=== PATIENT | female | born 1995 | race Caucasian/White ===

== ENCOUNTER 2016-05-04 | Outpatient (CLI) | payer MEDICAID | END 2016-05-04 12:35 | disposition home or self-care (01) ==

== ENCOUNTER 2016-05-14 11:19 | Outpatient (CLI) | payer MEDICAID | END 2016-05-15 11:20 | disposition home or self-care (01) | DX: Z36 Encounter for antenatal screening of mother (principal) ==

== ENCOUNTER 2016-05-28 11:48 | Outpatient (CLI) | payer MEDICAID | END 2016-05-28 11:49 | disposition home or self-care (01) | DX: L29.9 Pruritus, unspecified (principal) ==

== ENCOUNTER 2016-05-29 11:22 | Emergency (ER) | payer MEDICAID ==
[2016-05-29] MEDS ORDERED: SODIUM CHLORIDE 0.9% 1,000 ML IV ONE (12:59)
[2016-05-29] MEDS ORDERED: ONDANSETRON 4 MG/2 ML VIAL ONE (13:04)
[2016-05-29] MEDS ORDERED: ONDANSETRON 4 MG/2 ML VIAL IVP STA (13:04)
[2016-05-29] MEDS ORDERED: MAG HYDROX/AL HYDROX/SIMETH 30 ML UDC PO STA (13:28)
[2016-05-29] MEDS ORDERED: MAG HYDROX/AL HYDROX/SIMETH 30 ML UDC ONE (13:32)
== END 2016-05-29 14:38 | disposition home or self-care (01) ==
DX: O99.613 Diseases of the digestive system complicating pregnancy, third trimester (principal); K52.9 Noninfective gastroenteritis and colitis, unspecified; O99.283 Endocrine, nutritional and metabolic diseases complicating pregnancy, third trimester; E86.0 Dehydration; Z3A.37 37 weeks gestation of pregnancy
CPT/HCPCS: 36415; 80053; 81001; 83690; 84484; 85025; 96374; 99281; 99283; A9270

== ENCOUNTER 2016-05-29 14:42 | Inpatient (IN) | payer MEDICAID ==
[2016-05-29] MEDS ORDERED: DEXTROSE 5%-LACTATED RINGERS 1,000 ML IV SCH (17:00)
[2016-05-29] MEDS ORDERED: SODIUM CHLORIDE FLUSH 0.9% 10 ML SYRINGE IVP ONE (17:53)
[2016-05-29] MEDS: ONDANSETRON 4 MG/2 ML VIAL IVP PRN ×2 (18:03→22:51)
[2016-05-29] MEDS ORDERED: MAGNESIUM CITRATE 296 ML BOTTLE PO PRN (18:51)
[2016-05-29] MEDS ORDERED: ZOLPIDEM 5 MG TABLET PO PRN (20:15)
[2016-05-29] MEDS: DEXTROSE 5%-LACTATED RINGERS 1,000 ML IV SCH ×2 (22:07→22:08)
[2016-05-29] MEDS: ACETAMINOPHEN 325 MG TABLET PO PRN (22:52)
[2016-05-30] MEDS ORDERED: HYDROcod/ACETAM 10 MG/325 MG TABLET ONE (02:00)
[2016-05-30] MEDS: DEXTROSE 5%-LACTATED RINGERS 1,000 ML IV SCH ×2 (04:24→11:01)
[2016-05-30] MEDS: HYDROcod/ACETAM 10 MG/325 MG TABLET PO PRN ×2 (08:44→18:43)
[2016-05-30] MEDS: CALCIUM CARBONATE CHEW 500 MG TABLET PO SCH (09:54)
[2016-05-30] MEDS ORDERED: SODIUM CHLORIDE FLUSH 0.9% 10 ML SYRINGE IVP PRN (13:04)
[2016-05-30] MEDS: LACTATED RINGERS 1,000 ML IV SCH ×2 (13:18→19:47)
[2016-05-30] MEDS: CALCIUM CARBONATE CHEW 500 MG TABLET PO PRN ×2 (13:19→18:43)
[2016-05-30] MEDS ORDERED: DINOPROSTONE 10 MG SUPP VG ONE (13:30)
[2016-05-31] MEDS: LACTATED RINGERS 1,000 ML IV SCH ×3 (01:53→11:09)
[2016-05-31] MEDS ORDERED: SUFENTA/BUPIV 0.4 MCG/0.0625% 150 ML EP ONE (02:43)
[2016-05-31] MEDS ORDERED: LACTATED RINGERS 1,000 ML IV SCH (03:00)
[2016-05-31] MEDS ORDERED: LIDOCAINE-PF 2% 10 ML AMP SUBQ ONE (03:00)
[2016-05-31] MEDS ORDERED: ROPIVACAINE 0.2% PF 10 ML VIAL EPI ONE (03:00)
[2016-05-31] MEDS ORDERED: SUFENTA/BUPIV 0.4 MCG/0.0625% EPIDURAL 150 ML EP PRN (03:20)
[2016-05-31] MEDS ORDERED: OXYTOCIN/LACTATED RINGERS 250 ML IV SCH (04:30)
[2016-05-31] MEDS ORDERED: METOCLOPRAMIDE 10 MG/2 ML VIAL IVP PRN (05:31)
[2016-05-31] MEDS ORDERED: ONDANSETRON 4 MG/2 ML VIAL IVP PRN (05:31)
[2016-05-31] MEDS ORDERED: ePHEDrine 50 MG/ML AMP IVP PRN (05:31)
[2016-05-31] MEDS ORDERED: NALOXONE 0.4 MG/ML VIAL IVP PRN (05:31)
[2016-05-31] MEDS ORDERED: diphenhydrAMINE INJ 50 MG/ML VIAL IVP PRN (05:31)
[2016-05-31] MEDS ORDERED: NALBUPHINE 20 MG/ML AMP IVP PRN (05:31)
[2016-05-31] MEDS ORDERED: LACTATED RINGERS 500 ML IV ONE (05:31)
[2016-05-31] MEDS: ACETAMINOPHEN 325 MG TABLET PO PRN (07:47)
[2016-05-31] MEDS ORDERED: ACETAMINOPHEN 325 MG TABLET PO PRN (12:08)
[2016-05-31] MEDS: OXYTOCIN/LACTATED RINGERS 250 ML IV SCH ×2 (12:10→14:55)
[2016-05-31] MEDS ORDERED: WITCH HAZEL/GLYCERIN 1 EACH MED..PAD TOP PRN (12:12)
[2016-05-31] MEDS: IBUPROFEN 600 MG TABLET PO SCH ×2 (14:53→20:54)
[2016-05-31] MEDS: HYDROcod/ACETAM 10 MG/325 MG TABLET PO PRN ×2 (16:56→20:53)
[2016-05-31] MEDS: SODIUM CHLORIDE FLUSH 0.9% 10 ML SYRINGE IVP SCH (20:09)
[2016-05-31] MEDS: DOCUSATE SODIUM 100 MG CAPSULE PO SCH (20:53)
[2016-06-01] MEDS: HYDROcod/ACETAM 10 MG/325 MG TABLET PO PRN (02:10)
[2016-06-01] MEDS: IBUPROFEN 600 MG TABLET PO SCH ×4 (08:35→19:35)
[2016-06-01] MEDS: DOCUSATE SODIUM 100 MG CAPSULE PO SCH ×2 (08:49→21:15)
[2016-06-01] MEDS: CALCIUM CARBONATE CHEW 500 MG TABLET PO SCH ×3 (10:35→23:29)
[2016-06-01] MEDS: SODIUM CHLORIDE FLUSH 0.9% 10 ML SYRINGE IVP SCH ×3 (10:38→10:42)
[2016-06-02] MEDS: IBUPROFEN 600 MG TABLET PO SCH ×2 (01:54→07:39)
[2016-06-02] MEDS: DOCUSATE SODIUM 100 MG CAPSULE PO SCH (07:39)
== END 2016-06-02 10:30 | disposition home or self-care (01) | DRG 775 ==
PROC: 3E0P7GC Introduction of Other Therapeutic Substance into Female Reproductive, Via Natural or Artificial Opening (ICD-10-PCS; principal; 2016-05-31)
PROC: 10E0XZZ Delivery of Products of Conception, External Approach (ICD-10-PCS; principal; 2016-05-31)
DX: O26.62 Liver and biliary tract disorders in childbirth (principal); K83.1 Obstruction of bile duct; O66.0 Obstructed labor due to shoulder dystocia; O69.81X0 Labor and delivery complicated by cord around neck, without compression, not applicable or unspecified; O75.89 Other specified complications of labor and delivery; O99.283 Endocrine, nutritional and metabolic diseases complicating pregnancy, third trimester; E86.0 Dehydration; Z87.891 Personal history of nicotine dependence; Z3A.37 37 weeks gestation of pregnancy; Z37.0 Single live birth

== ENCOUNTER 2016-06-04 13:50 | Outpatient (CLI) | payer MEDICAID ==
[2016-06-04 14:33] LABS: ALBUMIN/GLOBULIN RATIO 0.8 (1.0-2.2); BILIRUBIN,TOTAL 0.3 mg/dL (0.2-1.0); CALCIUM 8.3 mg/dL (8.5-10.3); CREATININE 0.6 mg/dL (0.4-1.0); POTASSIUM 3.6 mmol/L (3.5-5.0); TOTAL PROTEIN 6.8 g/dL (6.7-8.2)
== END 2016-06-04 13:51 | disposition home or self-care (01) ==
LOC: LAB 13:50
PROVIDERS: ATTEND Nurse Practitioner Obstetrics & Gynecology
DX: O26.619 Liver and biliary tract disorders in pregnancy, unspecified trimester (principal)
CPT/HCPCS: 36415; 80053

== ENCOUNTER 2016-10-19 10:36 | Outpatient (CLI) | payer MEDICAID ==
[2016-10-19 18:15] LABS: WBC,URINE >25 /HPF (0-5)
== END 2016-10-19 10:37 | disposition home or self-care (01) ==
LOC: LAB.R 10:36
PROVIDERS: ATTEND Nurse Practitioner Obstetrics & Gynecology
DX: R30.0 Dysuria (principal)
CPT/HCPCS: 81001

== ENCOUNTER 2016-11-05 09:25 | Emergency (ER) | payer MEDICAID ==
[2016-11-05] MEDS ORDERED: TETANUS/DIPHTHERIA/PERTUSSIS 0.5 ML SYRINGE IM ONE ×2 (10:09→10:22)
--- NOTE | 2016-11-05 11:54 | ED Physician Documentation ---
History of Present Illness - Stated complaint Stated Complaint: L FOOT LAC - Chief complaint Chief Complaint: Laceration - Additonal information Additional information: avulsion lac bottom of foot tdap > 10 yr Review of Systems Skin: reports: Laceration (s) PD PAST MEDICAL HISTORY - Past Medical History Cardiovascular: None Respiratory: None Endocrine/Autoimmune: None GI: Other : None HEENT: None Psych: ADD/ADHD Musculoskeletal: None Derm: None - Past Surgical History Past Surgical History: No - Present Medications Home Medications: Ambulatory Orders Medication Instructions Recorded Confirmed No Known Home Medications [No 11/05/16 11/05/16 Known Home Medications] - Allergies Allergies/Adverse Reactions: Allergies Allergy/AdvReac Type Severity Reaction Status Date / Time amoxicillin Allergy Rash Verified 11/05/16 09:39 minocycline [Minocycline] Allergy Rash Verified 11/05/16 09:39 acetaminophen AdvReac Unknown Verified 11/05/16 09:39 - Social History Does the pt smoke?: No Smoking Status: Former smoker Does the pt drink ETOH?: Yes Does the pt have substance abuse?: No - Immunizations Immunizations are current?: No Immunizations: TDAP >10years/unknown - POLST Patient has POLST: No PD ED PE NORMAL - Extremities Extremities: Other (R foot approx 2 cm V shaped avulsion of thicjenoed plantar skin, raw tusse under but no active bleding, MSV intact) Results - Vitals Vitals: Vital Signs - 24 hr 11/05/16 09:34 Temperature 36.2 C L Heart Rate 124 H Respiratory 20 Rate Blood Pressure 150/94 H O2 Saturation 100 Oxygen O2 Source Room air PD MEDICAL DECISION MAKING - ED course ED course: tdap irrigated dermabonf pt advised flap with dry and fall or need to be trimmed off after tissue under heals HR and BP high - rechecked and HR down to 110 - pt states not ill no fever CP palpitations leg swelling soa etc no caffeine etc - she feels fine - her CC is not an emergent concern - will ask her to fup PMD for a recheck - maybe needs thyroid work up Departure - Departure Disposition: 01 Home, Self Care Clinical Impression: Laceration Condition: Good Instructions: ED Laceration Foot Comments: Keep the foot clean and dry May bather but do not apply ointment because that will dissolve the glue The flap will dry up and eventually fall off or need to be trimmed off after the tissue underneath has healed Ass we discussed, wound on the feet are prone to infection - if you notice redness or swelling or discharge please come back Please follow up with your PMD within one week to get your heart rate and blood pressure rechecked
[2016-11-05 12:22] VITALS: BP 123/76
== END 2016-11-05 12:35 | disposition home or self-care (01) ==
LOC: ED 09:25
DX: S91.312A Laceration without foreign body, left foot, initial encounter (principal); W45.8XXA Other foreign body or object entering through skin, initial encounter; Y93.01 Activity, walking, marching and hiking; Y92.009 Unspecified place in unspecified non-institutional (private) residence as the place of occurrence of the external cause; R03.0 Elevated blood-pressure reading, without diagnosis of hypertension; R00.0 Tachycardia, unspecified; Z23 Encounter for immunization; Z87.891 Personal history of nicotine dependence
CPT/HCPCS: 12001; 90471; 99282

== ENCOUNTER 2016-12-11 22:54 | Emergency (ER) | payer MEDICAID ==
[2016-12-11 23:13] VITALS: BP 138/92
--- NOTE | 2016-12-11 23:41 | ED Physician Documentation ---
History of Present Illness - Stated complaint Stated Complaint: LT RING FINGER REDNESS - Chief complaint Chief Complaint: Wound - History obtained from History obtained from: Patient - History of Present Illness Timing: Today Pain level now: 7 Worsened by: palpation - Additonal information Additional information: c/o left fourth finger redness, swelling since this morning. patient "bit off a hangnail" (per patient) 2-3 days ago. She is right-hand dominant Review of Systems Constitutional: denies: Fever Skin: reports: Rash Musculoskeletal: reports: Extremity pain PD PAST MEDICAL HISTORY - Past Medical History Past Medical History: Yes Cardiovascular: None Respiratory: None Endocrine/Autoimmune: None GI: Other : None HEENT: None Psych: ADD/ADHD Musculoskeletal: None Derm: None - Past Surgical History Past Surgical History: No - Present Medications Home Medications: Ambulatory Orders Medication Instructions Recorded Confirmed Clindamycin [Cleocin] 300 mg PO Q6H 7 Days 12/12/16 oxyCODONE [Roxicodone] 5 - 10 mg PO Q6H PRN #14 tablet 12/12/16 - Allergies Allergies/Adverse Reactions: Allergies Allergy/AdvReac Type Severity Reaction Status Date / Time amoxicillin Allergy Rash Verified 12/11/16 23:34 minocycline [Minocycline] Allergy Rash Verified 12/11/16 23:34 acetaminophen AdvReac Unknown Verified 12/11/16 23:34 - Social History Does the pt smoke?: No Smoking Status: Former smoker Does the pt drink ETOH?: Yes Does the pt have substance abuse?: No - Immunizations Immunizations are current?: No Immunizations: TDAP >10years/unknown - POLST Patient has POLST: No PD ED PE NORMAL - Vitals Vital signs reviewed: Yes - General General: Alert and oriented X 3, No acute distress - Neuro Neuro: No motor deficit, No sensory deficit PD ED PE EXPANDED - Extremities JOSUE UE/Hands Visual: 1 - swelling, tenderness 2 - rash (erythematous streak from redness, swelling in area marked under (1)) Results - Vitals Vitals: Vital Signs - 24 hr 12/11/16 23:10 Temperature 36.6 C Heart Rate 88 Respiratory 17 Rate Blood Pressure 138/92 H O2 Saturation 100 Oxygen O2 Source Room air PD MEDICAL DECISION MAKING - ED course Complexity details: considered differential, d/w patient ED course: No fluctuance or discharge associated with the paronychia Departure - Departure Disposition: 01 Home, Self Care Clinical Impression: Paronychia Condition: Good Instructions: ED Fingernail Infec Prescriptions: Clindamycin [Cleocin] 300 mg PO Q6H 7 Days oxyCODONE [Roxicodone] 5 - 10 mg PO Q6H PRN #14 tablet PRN Reason: Pain Comments: Follow up with your primary care physician in 2-3 days for wound check Discharge Date/Time: 12/12/16 00:15
[2016-12-12] MEDS ORDERED: oxyCODONE 5 MG TABLET PO STA (00:03)
[2016-12-12] MEDS ORDERED: CLINDAMYCIN 150 MG CAPSULE PO STA (00:03)
[2016-12-12] MEDS ORDERED: CLINDAMYCIN 150 MG CAPSULE PO ONE (00:11)
[2016-12-12] MEDS ORDERED: oxyCODONE 5 MG TABLET ONE (00:12)
== END 2016-12-12 00:15 | disposition home or self-care (01) ==
LOC: ED 22:54
DX: L03.012 Cellulitis of left finger (principal); Z87.891 Personal history of nicotine dependence
CPT/HCPCS: 99283; A9270

== ENCOUNTER 2016-12-13 16:26 | Emergency (ER) | payer MEDICAID ==
[2016-12-13 16:37] VITALS: BP 118/72
[2016-12-13] MEDS ORDERED: BUFFERED LIDOCAINE 10 ML SYRINGE ONE (16:51)
--- NOTE | 2016-12-13 16:52 | ED Physician Documentation ---
PD HPI UPPER EXT INJURY - Stated complaint Stated Complaint: L RING FINGER INFECTIONS - Chief complaint Chief Complaint: Ext Problem - History obtained from History obtained from: Patient - History of Present Illness Location: Other (She was seen here a few days ago for a paronychia of the Left fourth finger, she is on antibiotics. It sounds like it was not really ripe for drainage at that juncture, but now it is.) Review of Systems Constitutional: denies: Fever, Chills : denies: Dysuria, Frequency Musculoskeletal: denies: Neck pain, Back pain PD PAST MEDICAL HISTORY - Past Medical History Cardiovascular: None Respiratory: None Endocrine/Autoimmune: None GI: Other : None HEENT: None Psych: ADD/ADHD Musculoskeletal: None Derm: None - Past Surgical History Past Surgical History: No - Present Medications Home Medications: Ambulatory Orders Medication Instructions Recorded Confirmed Clindamycin [Cleocin] 300 mg PO Q6H 7 Days 12/12/16 12/13/16 oxyCODONE [Roxicodone] 5 - 10 mg PO Q6H PRN #14 tablet 12/12/16 12/13/16 - Allergies Allergies/Adverse Reactions: Allergies Allergy/AdvReac Type Severity Reaction Status Date / Time amoxicillin Allergy Rash Verified 12/13/16 16:37 minocycline [Minocycline] Allergy Rash Verified 12/13/16 16:37 acetaminophen AdvReac Unknown Verified 12/13/16 16:37 - Social History Does the pt smoke?: No Smoking Status: Former smoker Does the pt drink ETOH?: Yes Does the pt have substance abuse?: No - Immunizations Immunizations are current?: No Immunizations: TDAP >10years/unknown - POLST Patient has POLST: No PD ED PE NORMAL - Vitals Vital signs reviewed: Yes - General General: Alert and oriented X 3, No acute distress - Extremities Extremities: Other (There is an almost circumferential paronychia of the base of the nailbed of the left fourth finger. No limited range of motion.) - Neuro Neuro: Alert and oriented X 3, Normal speech - Psych Psych: Normal mood, Normal affect Results - Vitals Vitals: Vital Signs - 24 hr 12/13/16 16:33 Temperature 36.8 C Heart Rate 75 Respiratory 16 Rate Blood Pressure 118/72 O2 Saturation 95 Oxygen O2 Source Room air Procedures - Abscess I&D (location) Left fourth paronychia Preparation: Lidocaine 1% (Buffered, digital block) Incision: Incised with scalpel, Purulent drainage Other: Pt tolerated well, Dressing applied. No: Antibiotic prescribed (Already on clindamycin) Departure - Departure Disposition: Home, Self Care Clinical Impression: Paronychia Qualifiers: Laterality: left Qualified Code(s): L03.012 - Cellulitis of left finger Condition: Good Record reviewed to determine appropriate education?: Yes Instructions: ED Fingernail Infec Comments: Continue the antibiotic, follow-up with your doctor Saturday or Saturday for wound check. Return if worse.
== END 2016-12-13 17:24 | disposition home or self-care (01) ==
LOC: ED 16:26
DX: L03.012 Cellulitis of left finger (principal); Z87.891 Personal history of nicotine dependence
CPT/HCPCS: 10060; 99283

== ENCOUNTER 2017-03-17 07:53 | Emergency (ER) | payer MEDICAID ==
[2017-03-17 08:01] VITALS: BP 119/75
[2017-03-17 08:17] LABS: BILIRUBIN,URINE NEGATIVE (NEGATIVE)
[2017-03-17 08:20] LABS: HCG UR QUAL NEGATIVE; UA w/ MICROSCOPIC CHARGE YES
--- NOTE | 2017-03-17 08:20 | ED Physician Documentation ---
PD HPI FEMALE - Stated complaint Stated Complaint: FEMALE - Chief complaint Chief Complaint: UTI - History obtained from History obtained from: Patient - History of Present Illness Timing - onset: How many days ago (2) Timing - duration: Days (2) Timing - details: Gradual onset, Still present Associated symptoms: Dysuria, Urinary frequency Similar symptoms before: Diagnosis (UTI) Recently seen: Not recently seen - Additional information Additional information: 21 y/o female with typical symptoms of UTI over the weekend has begun to develop some low back pain and decided not to wait until saturday to start treatment and has come to the ED. She has not had vomiting or fever. She feels well otherwise. Review of Systems Constitutional: denies: Fever, Chills Eyes: denies: Decreased vision Ears: denies: Ear pain Nose: denies: Congestion Throat: denies: Sore throat Cardiac: denies: Chest pain / pressure Respiratory: denies: Dyspnea, Cough GI: denies: Abdominal Pain, Nausea, Vomiting, Constipation, Diarrhea : reports: Dysuria, Frequency Skin: denies: Rash Musculoskeletal: reports: Back pain. denies: Neck pain, Extremity pain Neurologic: denies: Generalized weakness, Focal weakness, Numbness PD PAST MEDICAL HISTORY - Past Medical History Past Medical History: Yes Cardiovascular: None Respiratory: None Endocrine/Autoimmune: None GI: Other : None HEENT: None Psych: ADD/ADHD Musculoskeletal: None Derm: None - Past Surgical History Past Surgical History: No - Present Medications Home Medications: Ambulatory Orders Medication Instructions Recorded Confirmed Levonorgestrel [Mirena] 1 each IY DAILY 03/17/17 03/17/17 Sulfamethoxazole/Trimethoprim 1 each PO BID #6 tablet 03/17/17 [Sulfamethoxazole-Tmp Ds Tablet] - Allergies Allergies/Adverse Reactions: Allergies Allergy/AdvReac Type Severity Reaction Status Date / Time amoxicillin Allergy Rash Verified 03/17/17 08:01 minocycline [Minocycline] Allergy Rash Verified 03/17/17 08:01 acetaminophen AdvReac Unknown Verified 03/17/17 08:01 - Social History Does the pt smoke?: No Smoking Status: Never smoker Does the pt drink ETOH?: Yes Does the pt have substance abuse?: No - Immunizations Immunizations are current?: No Immunizations: TDAP >10years/unknown - POLST Patient has POLST: No PD ED PE NORMAL - Vitals Vital signs reviewed: Yes (normal ) - General General: No acute distress, Well developed/nourished - HEENT HEENT: Atraumatic, PERRL - Neck Neck: Supple, no meningeal sign - Cardiac Cardiac: RRR, No murmur - Respiratory Respiratory: No respiratory distress, Clear bilaterally - Abdomen Abdomen: Soft, Non tender - Back Back: No CVA TTP, No spinal TTP - Derm Derm: Normal color, Warm and dry, No rash - Extremities Extremities: No deformity, No edema - Neuro Neuro: Alert and oriented X 3, powered bridge specialist 2-12 intact, No motor deficit, No sensory deficit, Normal speech Eye Opening: Spontaneous Motor: Obeys Commands Verbal: Oriented GCS Score: 15 - Psych Psych: Normal mood, Normal affect Results - Vitals Vitals: Vital Signs - 24 hr 03/17/17 07:59 Temperature 36.7 C Heart Rate 96 Respiratory 16 Rate Blood Pressure 119/75 O2 Saturation 100 Oxygen O2 Source Room air - Labs Labs: Laboratory Tests 03/17/17 08:03 Urine Color YELLOW Urine Clarity CLOUDY Urine pH 6.0 Ur Specific [place] >=1.030 H Urine Protein NEGATIVE Urine Glucose (UA) NEGATIVE Urine Ketones NEGATIVE Urine Occult Blood MODERATE H Urine Nitrite NEGATIVE Urine Bilirubin NEGATIVE Urine Urobilinogen 0.2 (NORMAL) Ur Leukocyte Esterase MODERATE H Urine RBC 6-10 H Urine WBC >25 H Ur Squamous Epith Cells MANY Squamous H Urine Bacteria Rare Urine Mucus Moderate Strands Ur Microscopic Review INDICATED Urine Culture Comments NOT INDICATED Urine HCG, Qual NEGATIVE Departure - Departure Disposition: 01 Home, Self Care Clinical Impression: Urinary tract infection Qualifiers: Urinary tract infection type: acute cystitis Hematuria presence: without hematuria Qualified Code(s): N30.00 - Acute cystitis without hematuria Condition: Stable Instructions: ED UTI Cystitis Female Follow-Up: Khushbu Soto ARNP [Primary Care Provider] - Prescriptions: Sulfamethoxazole/Trimethoprim [Sulfamethoxazole-Tmp Ds Tablet] 1 each PO BID #6 tablet
[2017-03-17 08:31] LABS: UR CULTURE IF IND NOT INDICATED; WBC,URINE >25 /HPF (0-5)
== END 2017-03-17 08:44 | disposition home or self-care (01) ==
LOC: ED 07:53
DX: N30.00 Acute cystitis without hematuria (principal)
CPT/HCPCS: 81001; 81003; 81025; 87086; 99283

== ENCOUNTER 2017-04-25 15:57 | Emergency (ER) | payer MEDICAID ==
--- NOTE | 2017-04-25 17:34 | ED Physician Documentation ---
History of Present Illness - Stated complaint Stated Complaint: SORE THROAT - Chief complaint Chief Complaint: Heent - Additonal information Additional information: hx from pt 21 female to ER for sore throat R ear pain, R sided DARDEN, no sig couhg denies preg was just here with her son yesterday Review of Systems Ears: reports: Ear pain Throat: reports: Sore throat Respiratory: denies: Cough GI: denies: Vomiting, Diarrhea Skin: denies: Rash Neurologic: reports: Headache PD PAST MEDICAL HISTORY - Past Medical History Cardiovascular: None Respiratory: None Endocrine/Autoimmune: None GI: Other : None HEENT: None Psych: ADD/ADHD Musculoskeletal: None Derm: None - Past Surgical History Past Surgical History: No - Present Medications Home Medications: Ambulatory Orders Medication Instructions Recorded Confirmed Levonorgestrel [Mirena] 1 each IY DAILY 03/17/17 03/17/17 Dextromethorphan/Benzocaine 1 each PO Q4H PRN #20 lozenge 04/25/17 [Cepacol Sorethroat-Cough Ajrek] Ibuprofen [Motrin] 400 mg PO Q6H PRN #30 tablet 04/25/17 - Allergies Allergies/Adverse Reactions: Allergies Allergy/AdvReac Type Severity Reaction Status Date / Time amoxicillin Allergy Rash Verified 04/25/17 16:15 minocycline [Minocycline] Allergy Rash Verified 04/25/17 16:15 acetaminophen AdvReac Unknown Verified 04/25/17 16:15 - Social History Does the pt smoke?: No Smoking Status: Never smoker Does the pt drink ETOH?: Yes Does the pt have substance abuse?: No - Immunizations Immunizations are current?: No Immunizations: TDAP >10years/unknown - POLST Patient has POLST: No PD ED PE NORMAL - Vitals Vital signs reviewed: Yes - General General: Alert and oriented X 3 - HEENT HEENT: PERRL. No: Ears normal (R dull and retracted), Pharynx benign (karley enlarged tonsils with exudate and PND) - Neck Neck: Supple, no meningeal sign. No: No adenopathy (anterior no posterior) - Cardiac Cardiac: RRR - Respiratory Respiratory: No respiratory distress, Clear bilaterally - Abdomen Abdomen: Soft, Non tender, No organomegaly Results - Vitals Vitals: Vital Signs - 24 hr 04/25/17 16:13 Temperature 37.1 C Heart Rate 83 Respiratory 18 Rate Blood Pressure 119/89 H O2 Saturation 98 Oxygen O2 Source Room air - Labs Labs: Laboratory Tests 04/25/17 16:15 Group A Strep Rapid Negative PD MEDICAL DECISION MAKING - ED course ED course: meets centor criteria except fever but neg rapid will wait on cx Departure - Departure Disposition: Home, Self Care Clinical Impression: Pharyngitis Qualifiers: Pharyngitis/tonsillitis etiology: unspecified etiology Qualified Code(s): J02.9 - Acute pharyngitis, unspecified Condition: Good Instructions: ED Pharyngitis Viral Report Pending Follow-Up: Khushbu Soto ARNP [Primary Care Provider] - Prescriptions: Dextromethorphan/Benzocaine [Cepacol Sorethroat-Cough Jarek] 1 each PO Q4H PRN # 20 lozenge PRN Reason: sore throat Ibuprofen [Motrin] 400 mg PO Q6H PRN #30 tablet PRN Reason: Pain Comments: The rapid strep came back negative The ER staff will call you if the culture is positive and you need antibiotics - if you need antibiotics I would recommend zithrmoax Motrin and cepacol lozenges as needed for the pain Rest and drink plenty of fluids
[2017-04-25 18:00] VITALS: BP 109/88
== END 2017-04-25 17:58 | disposition home or self-care (01) ==
LOC: ED 15:57
DX: J02.9 Acute pharyngitis, unspecified (principal)
CPT/HCPCS: 87070; 87430; 99283

== ENCOUNTER 2017-05-22 00:17 | Emergency (ER) | payer MEDICAID ==
[2017-05-22] MEDS ORDERED: SODIUM CHLORIDE 0.9% 1,000 ML IV ONE (00:22)
[2017-05-22] MEDS ORDERED: ONDANSETRON 4 MG/2 ML VIAL IVP STA (00:22)
--- NOTE | 2017-05-22 00:29 | ED Physician Documentation ---
PD HPI NVD - Stated complaint Stated Complaint: VOMITING - History obtained from History obtained from: Patient - History of Present Illness Timing - onset: Yesterday Timing - details: Gradual onset Associated symptoms: Abdominal pain, Near syncope / syncope Contributing factors: Sick contact Similar symptoms before: No diagnosis Recently seen: Not recently seen - Additonal information Additional information: Patient is a 21 year old female who is presenting to the emergency department for nausea, vomiting and diarrhea. patient states that her daughter has been sick with simlar symptoms and over the last few days she has had multiple episodes of vomiting and diarrhea. Review of Systems Constitutional: reports: Chills. denies: Fever Eyes: denies: Discharge, Irritation Ears: denies: Ear pain, Drainage/discharge Nose: denies: Congestion Throat: denies: Dental pain / toothache, Sore throat Cardiac: denies: Chest pain / pressure, Palpitations Respiratory: denies: Cough, Wheezing GI: reports: Abdominal Pain, Nausea, Vomiting, Diarrhea : denies: Dysuria, Frequency Musculoskeletal: reports: Reviewed and negative Neurologic: reports: Generalized weakness. denies: Focal weakness, Numbness, Syncope Psychiatric: denies: Depressed Immunocompromised: denies: Immunocompromised PD PAST MEDICAL HISTORY - Past Medical History Cardiovascular: None Respiratory: None Endocrine/Autoimmune: None GI: Other : None HEENT: None Psych: ADD/ADHD Musculoskeletal: None Derm: None - Past Surgical History Past Surgical History: No - Present Medications Home Medications: Ambulatory Orders Medication Instructions Recorded Confirmed Levonorgestrel [Mirena] 1 each IY DAILY 03/17/17 03/17/17 Dextromethorphan/Benzocaine 1 each PO Q4H PRN #20 lozenge 04/25/17 [Cepacol Sorethroat-Cough Jarek] Ibuprofen [Motrin] 400 mg PO Q6H PRN #30 tablet 04/25/17 Ondansetron Odt [Zofran] 4 mg TL Q6H PRN #14 tablet 05/22/17 - Allergies Allergies/Adverse Reactions: Allergies Allergy/AdvReac Type Severity Reaction Status Date / Time amoxicillin Allergy Rash Verified 05/22/17 00:24 minocycline [Minocycline] Allergy Rash Verified 05/22/17 00:24 acetaminophen AdvReac Unknown Verified 05/22/17 00:24 - Social History Does the pt smoke?: No Smoking Status: Never smoker Does the pt drink ETOH?: Yes Does the pt have substance abuse?: No - Immunizations Immunizations are current?: No Immunizations: TDAP >10years/unknown - POLST Patient has POLST: No PD ED PE NORMAL - Vitals Vital signs reviewed: Yes - General General: Alert and oriented X 3 - HEENT HEENT: Atraumatic, PERRL - Neck Neck: Supple, no meningeal sign - Respiratory Respiratory: No respiratory distress - Abdomen Abdomen: Non distended - Derm Derm: Normal color, No rash - Extremities Extremities: No deformity, No tenderness to palpate - Neuro Neuro: Alert and oriented X 3, No motor deficit, No sensory deficit, Normal speech - Psych Psych: Normal mood PD ED PE EXPANDED - General General: Alert, Disheveled, poorly kept - HEENT HEENT: Dry mucous membranes - Cardiac Cardiac: Tachy - Abdomen Abdomen: No: Tender to palpation Results - Vitals Vitals: Vital Signs - 24 hr 05/22/17 00:22 Temperature 36.5 C Heart Rate 115 H Respiratory 18 Rate Blood Pressure 116/66 O2 Saturation 96 Oxygen O2 Source Room air - Labs Labs: Laboratory Tests 05/22/17 00:30 Influenza A (Rapid) Negative Influenza B (Rapid) Negative Influenza Types A,B Ag - PD MEDICAL DECISION MAKING - ED course Complexity details: reviewed old records, reviewed results, re-evaluated patient , considered differential, d/w patient ED course: Patient was seen and examined at bedside. patient was mildly tachycardic and was treated with IV fluids and zofran. flu swab was performed and was negative. patient's nausea improved and she was able to tolerate PO without difficulty. Patien required no further work up and was stable for discharge with outpatient follow up. Departure - Departure Disposition: 01 Home, Self Care Clinical Impression: Gastroenteritis Condition: Good Instructions: ED Gastroenteritis Viral Follow-Up: Khushbu Soto ARNP [Primary Care Provider] - As Needed Prescriptions: Ondansetron Odt [Zofran] 4 mg TL Q6H PRN #14 tablet PRN Reason: Nausea / Vomiting Comments: Your symptoms are likely viral in nature and should get better over the next few days. it is important ath you stay well hydrated. You can take zofran for nausea and supplement your diet with water and electrolyte solution. (gatorade) . You should follow up with your doctor if your symptoms persist for more than the next 4-5 days. You may return to the emergency department at any time if needed for new, worsening or uncontrollable symptoms. Forms: Activity restrictions
[2017-05-22] MEDS ORDERED: ONDANSETRON ODT 4 MG Prepack 2 TL STA (01:17)
[2017-05-22 01:33] VITALS: BP 118/67
== END 2017-05-22 01:44 | disposition home or self-care (01) ==
LOC: ED 00:17
DX: K52.9 Noninfective gastroenteritis and colitis, unspecified (principal)
CPT/HCPCS: 87275; 87276; 96361; 96374; 99283; 99284

== ENCOUNTER 2017-06-08 09:25 | Emergency (ER) | payer MEDICAID ==
[2017-06-08 09:31] VITALS: BP 118/76
--- NOTE | 2017-06-08 10:14 | ED Physician Documentation ---
PD HPI HEENT - Stated complaint Stated Complaint: THROAT PX - Chief complaint Chief Complaint: Heent - History obtained from History obtained from: Patient - History of Present Illness Timing - onset: How many days ago (4) Timing - duration: Days (4) Timing - details: Gradual onset, Still present Location: Throat Improves: Medication Worsens: Swalllowing Associated symptoms: Fever, Congestion, Rhinorrhea, Swollen nodes, Headache. No : Cough Similar symptoms before: Has not had sx before Recently seen: Not recently seen - Additional information Additional information: 21-year-old female is been ill with a sore throat and fever for the past 4 days. She is having some difficulty swallowing and she is not having a cough. Review of Systems Constitutional: reports: Fever, Chills Eyes: denies: Decreased vision Ears: denies: Ear pain Nose: reports: Rhinorrhea / runny nose, Congestion Throat: reports: Sore throat Cardiac: denies: Chest pain / pressure, Palpitations Respiratory: denies: Dyspnea, Cough GI: denies: Abdominal Pain, Nausea, Vomiting : denies: Dysuria PD PAST MEDICAL HISTORY - Past Medical History Cardiovascular: None Respiratory: None Endocrine/Autoimmune: None GI: Other : None HEENT: None Psych: ADD/ADHD Musculoskeletal: None Derm: None - Past Surgical History Past Surgical History: No General: Cholecystectomy - Present Medications Home Medications: Ambulatory Orders Medication Instructions Recorded Confirmed Azithromycin [Zithromax] 250 mg PO DAILY #6 tablet 06/08/17 - Allergies Allergies/Adverse Reactions: Allergies Allergy/AdvReac Type Severity Reaction Status Date / Time amoxicillin Allergy Rash Verified 06/08/17 09:31 minocycline [Minocycline] Allergy Rash Verified 06/08/17 09:31 acetaminophen AdvReac Unknown Verified 06/08/17 09:31 - Social History Does the pt smoke?: No Smoking Status: Never smoker Does the pt drink ETOH?: Yes Does the pt have substance abuse?: No - Immunizations Immunizations are current?: No Immunizations: TDAP >10years/unknown - POLST Patient has POLST: No PD ED PE NORMAL - Vitals Vital signs reviewed: Yes (Febrile and tachycardic) - General General: Alert and oriented X 3, No acute distress, Well developed/nourished - HEENT HEENT: Atraumatic, PERRL, EOMI, Other (The TMs are both flush but with retained landmarks the pharynx is with 3+ tonsils with crypts and exudate.) - Neck Neck: Supple, no meningeal sign, No bony TTP, Other - Cardiac Cardiac: No murmur, Other (Tachycardia to 110) - Respiratory Respiratory: No respiratory distress, Clear bilaterally - Abdomen Abdomen: Soft, Non tender - Back Back: No CVA TTP, No spinal TTP - Derm Derm: Normal color, Warm and dry, No rash - Extremities Extremities: No deformity, Normal ROM s pain, No edema - Neuro Neuro: Alert and oriented X 3, No motor deficit, No sensory deficit, Normal speech Eye Opening: Spontaneous Motor: Obeys Commands Verbal: Oriented GCS Score: 15 - Psych Psych: Normal mood, Normal affect Results - Vitals Vitals: Vital Signs - 24 hr 06/08/17 09:28 Temperature 37.8 C H Heart Rate 122 H Respiratory 18 Rate Blood Pressure 118/76 O2 Saturation 97 Oxygen O2 Source Room air - Labs Labs: Laboratory Tests 06/08/17 09:40 Group A Strep Rapid POSITIVE H PD MEDICAL DECISION MAKING - ED course Complexity details: reviewed old records, reviewed results, re-evaluated patient , considered differential, d/w patient ED course: 21-year-old female with a sore throat has a lot of swelling and exudate in her tonsils and a positive rapid strep. She is given 10 mg of dexamethasone she is allergic to amoxicillin we will place her on some azithromycin. Departure - Departure Disposition: 01 Home, Self Care Clinical Impression: Strep pharyngitis Instructions: ED Strep Pharyngitis Conf Follow-Up: Khushbu Soto ARNP [Primary Care Provider] - Prescriptions: Azithromycin [Zithromax] 250 mg PO DAILY #6 tablet
[2017-06-08] MEDS ORDERED: DEXAMETHASONE 10 MG/ML VIAL PO STA (10:24)
== END 2017-06-08 10:31 | disposition home or self-care (01) ==
LOC: ED 09:25
DX: J02.0 Streptococcal pharyngitis (principal)
CPT/HCPCS: 87430; 99283

== ENCOUNTER 2017-09-02 18:36 | Emergency (ER) | payer OTHER, MEDICAID ==
--- NOTE | 2017-09-02 19:38 | ED Physician Documentation ---
PD HPI HEENT - Stated complaint Stated Complaint: EAR LAC - Chief complaint Chief Complaint: Wound - History obtained from History obtained from: Patient - History of Present Illness Timing - onset: Today Timing - details: Abrupt onset, Still present Location: Left ear (she was playing with her dog, who playfully nipped at her and caused lac to outer rim of ear on left. Has a small flap that is bent out of position.) Associated symptoms: No: Fever, Congestion, Headache Similar symptoms before: Has not had sx before Recently seen: Not recently seen Review of Systems Ears: reports: Ear pain. denies: Loss of hearing, Drainage/discharge, Tinnitus/ ringing Neurologic: denies: Focal weakness, Numbness PD PAST MEDICAL HISTORY - Past Medical History Past Medical History: Yes Cardiovascular: None Respiratory: None Endocrine/Autoimmune: None GI: Other : None HEENT: None Psych: ADD/ADHD Musculoskeletal: None Derm: None - Past Surgical History Past Surgical History: No General: Cholecystectomy - Present Medications Home Medications: Ambulatory Orders Medication Instructions Recorded Confirmed Azithromycin [Zithromax] 250 mg PO DAILY #6 tablet 06/08/17 Azithromycin [Zithromax] 250 mg PO DAILY #6 tablet 09/02/17 - Allergies Allergies/Adverse Reactions: Allergies Allergy/AdvReac Type Severity Reaction Status Date / Time amoxicillin Allergy Rash Verified 09/02/17 18:43 minocycline [Minocycline] Allergy Rash Verified 09/02/17 18:43 acetaminophen AdvReac Unknown Verified 09/02/17 18:43 - Social History Does the pt smoke?: No Smoking Status: Never smoker Does the pt drink ETOH?: Yes Does the pt have substance abuse?: No - Immunizations Immunizations are current?: No Immunizations: TDAP >10years/unknown - POLST Patient has POLST: No PD ED PE NORMAL - Vitals Vital signs reviewed: Yes - General General: Alert and oriented X 3, No acute distress, Well developed/nourished - HEENT HEENT: No: Ears normal (ear canal okay. Outer pinna at mid part with flap lac just exposing the cartilage. No cartilage inury and no FB. less than 1 cm lac, but it does bend down so is not smooth contour. ) - Neck Neck: Supple, no meningeal sign, No bony TTP, No adenopathy Results - Vitals Vitals: Oxygen O2 Source Room air Procedures - Laceration (location) left outer pinna Length in cm: 1.5 Wound type: Flap, Into subcut fat, Clean Neurovascular status: Sensory intact, Vascular intact Anesthesia: LET Skin layer closure: Nylon, Interrupted, Size #-0 - enter number (6), Sutures - enter # (6) Other: Patient tolerated well, No complications, Tetanus UTD Complexity: Simple PD MEDICAL DECISION MAKING - ED course Complexity details: considered differential, d/w patient Departure - Departure Disposition: 01 Home, Self Care Clinical Impression: Laceration of left ear Qualifiers: Encounter type: initial encounter Qualified Code(s): S01.312A - Laceration without foreign body of left ear, initial encounter Condition: Stable Record reviewed to determine appropriate education?: Yes Instructions: ED Laceration Facial Sutr Tape Follow-Up: Khushbu Soto ARNP [Primary Care Provider] - Prescriptions: Azithromycin [Zithromax] 250 mg PO DAILY #6 tablet Comments: It is okay to wash and shower. Clean off the wound twice a day with soap and water, or peroxide and water. Apply some antibiotic ointment to it to keep it moist. Also to watch for signs of infection such as purulence, redness or increasing pain. Return to your primary care or the ER at the specified time for suture removal. Suture removal in a week. The ears have such good blood flow that infection is very uncommon even with bite wounds. However at in the early suggestion of infection, start the azithromycin antibiotic. I wouldn't necessarily start it preemptively. Discharge Date/Time: 09/02/17 20:43
[2017-09-02] MEDS ORDERED: LIDOCAINE-EPINEPH-TETRACAINE 3 ML SYRINGE TOP STA (19:56)
[2017-09-02 20:41] VITALS: BP 107/66
== END 2017-09-02 20:43 | disposition home or self-care (01) ==
LOC: ED 18:36
DX: S01.312A Laceration without foreign body of left ear, initial encounter (principal); W22.8XXA Striking against or struck by other objects, initial encounter
CPT/HCPCS: 12011; 99283

== ENCOUNTER 2017-12-22 03:56 | Emergency (ER) | payer OTHER, MEDICAID ==
--- NOTE | 2017-12-22 04:37 | XRAY Report ---
Reason: slammed in car door Procedure Date: 12/22/2017 Accession Number: [id number] / [id number] Procedure: XR - Hand 3 View RT CPT Code: FULL RESULT: EXAM: RIGHT HAND RADIOGRAPHY EXAM DATE: 12/22/2017 04:28 AM. CLINICAL HISTORY: Slammed right hand in car door, hand pain. COMPARISON: None. TECHNIQUE: 3 views. FINDINGS: Bones: Normal. No fractures or bone lesions. Joints: Normal. No subluxations. Soft Tissues: Normal. No soft tissue swelling. IMPRESSION: Normal hand radiography. RADIA
--- NOTE | 2017-12-22 04:39 | ED Physician Documentation ---
PD HPI UPPER EXT INJURY - Stated complaint Stated Complaint: RT HAND INJURY - Chief complaint Chief Complaint: Trauma Ext - History obtained from History obtained from: Patient - History of Present Illness Location: Right, Finger Type of injury: Blunt / blow (accidnetally closed car door on little finger, with pain and swelling of that finger.) Timing - onset: How many hours ago (1), Today Timing - duration: Hours (1) Timing - details: Abrupt onset, Still present Worsened by: Moving, Palpating Associated symptoms: Swelling Similar symptoms before: Has not had sx before Recently seen: Not recently seen Review of Systems Skin: denies: Abrasion (s), Laceration (s) Neurologic: denies: Focal weakness, Numbness PD PAST MEDICAL HISTORY - Past Medical History Past Medical History: Yes Cardiovascular: None Respiratory: None Endocrine/Autoimmune: None GI: Other : None HEENT: None Psych: ADD/ADHD Musculoskeletal: None Derm: None Other Past Medical History: Overdose meds - Past Surgical History Past Surgical History: No General: Cholecystectomy - Present Medications Home Medications: Ambulatory Orders Medication Instructions Recorded Confirmed Azithromycin [Zithromax] 250 mg PO DAILY #6 tablet 06/08/17 Azithromycin [Zithromax] 250 mg PO DAILY #6 tablet 09/02/17 - Allergies Allergies/Adverse Reactions: Allergies Allergy/AdvReac Type Severity Reaction Status Date / Time amoxicillin Allergy Rash Verified 09/02/17 18:43 minocycline [Minocycline] Allergy Rash Verified 09/02/17 18:43 acetaminophen AdvReac Unknown Verified 09/02/17 18:43 - Social History Does the pt smoke?: No Smoking Status: Never smoker Does the pt drink ETOH?: Yes Does the pt have substance abuse?: No - Immunizations Immunizations are current?: No Immunizations: TDAP >10years/unknown - POLST Patient has POLST: No PD ED PE NORMAL - Vitals Vital signs reviewed: Yes - General General: Alert and oriented X 3, Well developed/nourished, Other (seems uncomfortable with any ROm of right little finger. ) - Derm Derm: Normal color, Warm and dry - Extremities Extremities: Other (right little finger with swelling and some mild bruising at PIP and middle phalanx. She is holding it slightly hyperextended at MCP. Hurts with movement. She can with coaxing flex and extend and allow it into neutral position. ) - Neuro Neuro: No motor deficit, No sensory deficit, Other (normal color at tip of finger. ) Results - Vitals Vitals: Vital Signs - 24 hr 12/22/17 12/22/17 04:05 05:35 Temperature 36.1 C L Heart Rate 116 H 95 Respiratory 16 14 Rate Blood Pressure 131/80 H 126/74 O2 Saturation 100 100 Oxygen O2 Source Room air - Rads (name of study) right hand Radiology: Prelim report reviewed (no fractures nor dislocations), EMP read contemporaneously PD MEDICAL DECISION MAKING - ED course Complexity details: reviewed results (no fractures nor dislocations. ), considered differential (tender at little finger. She is able to flex and extend , though reluctant to do it due to pain with movement. ), d/w patient - Sepsis Event Vital Signs: Vital Signs - 24 hr 12/22/17 12/22/17 04:05 05:35 Temperature 36.1 C L Heart Rate 116 H 95 Respiratory 16 14 Rate Blood Pressure 131/80 H 126/74 O2 Saturation 100 100 Oxygen O2 Source Room air Departure - Departure Disposition: 01 Home, Self Care Clinical Impression: Contusion of right little finger Qualifiers: Encounter type: initial encounter Damage to nail status: without damage Qualified Code(s): S60.051A - Contusion of right little finger without damage to nail, initial encounter Condition: Stable Record reviewed to determine appropriate education?: Yes Instructions: ED Sprain Finger Follow-Up: Khushbu Soto ARNP [Primary Care Provider] - Comments: Ibuprofen or naproxen 2-3 times a day if needed for pain. Finger splint for the next several days to week until improved. Gentle range of motion of the finger periodically so does not get stiff. Ice and elevate it for swelling often for the next day. Recheck if not better over the next week. There are no fractures no dislocations seen on x-ray. Discharge Date/Time: 12/22/17 05:35
[2017-12-22] MEDS ORDERED: IBUPROFEN 600 MG TABLET PO STA (04:55)
[2017-12-22] MEDS ORDERED: ACETAMINOPHEN 325 MG TABLET PO STA (04:55)
[2017-12-22 05:37] VITALS: BP 126/74
== END 2017-12-22 05:35 | disposition home or self-care (01) ==
LOC: ED 03:56
DX: S60.051A Contusion of right little finger without damage to nail, initial encounter (principal); V48.4XXA Person boarding or alighting a car injured in noncollision transport accident, initial encounter
CPT/HCPCS: 73130; 99283; A9270

== ENCOUNTER 2018-02-25 14:10 | Outpatient (CLI) | payer MEDICAID, OTHER | END 2018-02-25 23:59 | LOC: LAB.R 14:10 | PROVIDERS: ATTEND Nurse Practitioner Obstetrics & Gynecology | DX: N76.0 Acute vaginitis (principal); Z11.3 Encounter for screening for infections with a predominantly sexual mode of transmission | CPT/HCPCS: 87480; 87491; 87510; 87591; 87660 ==

== ENCOUNTER 2018-12-28 21:08 | Emergency (ER) | payer MEDICAID, OTHER ==
[2018-12-28 21:21] VITALS: BP 128/81
[2018-12-28 21:45] LABS: BILIRUBIN,URINE NEGATIVE (NEGATIVE); GLUCOSE, URINE (UA) NEGATIVE (NEGATIVE); KETONES,URINE (UA) NEGATIVE (NEGATIVE); LEUKOCYTE ESTERASE, URINE MODERATE (NEGATIVE); NITRITE,URINE NEGATIVE (NEGATIVE); OCCULT BLOOD,URINE NEGATIVE (NEGATIVE); PH,URINE 6.5 PH (5.0-7.5); PROTEIN,URINE NEGATIVE (NEGATIVE); UROBILINOGEN,URINE 0.2 (NORMAL) E.U./dL (NORMAL)
[2018-12-28 22:01] LABS: CLARITY,URINE HAZY (CLEAR); HCG UR QUAL NEGATIVE
[2018-12-28 22:02] LABS: BACTERIA,URINE None Seen /HPF (None Seen); RBC,URINE 0-5 /HPF (0-5); SQUAMOUS EPITHELIAL CELL,UR MOD Squamous (<= Few)
--- NOTE | 2018-12-28 22:06 | ED Physician Documentation ---
PD HPI FEMALE - Stated complaint Stated Complaint: FEMALE - Chief complaint Chief Complaint: Abd Pain - History obtained from History obtained from: Patient - History of Present Illness Timing - onset: How many days ago (3) Timing - details: Still present - Additional information Additional information: A 23-year-old female who has not been able to feel the string of her Mirena IUD for the past 3 days. The Mirena was inserted 2-1/2 years ago. She reports mild lower abdominal cramping, similar to menstrual cramps. She denies any vaginal bleeding. She denies fever, dysuria, or vomiting. She denies history of similar symptoms in the past. Review of Systems Constitutional: denies: Fever Nose: denies: Congestion Throat: denies: Sore throat Respiratory: denies: Dyspnea GI: reports: Abdominal Pain (Mild lower abdominal cramping.), Nausea. denies: Vomiting : reports: LMP (None since the placement of Mirena IUD.). denies: Dysuria, Vaginal bleeding Skin: denies: Rash Musculoskeletal: denies: Back pain Neurologic: denies: Headache PD PAST MEDICAL HISTORY - Past Medical History Cardiovascular: None Respiratory: None Endocrine/Autoimmune: None GI: Other : None HEENT: None Psych: ADD/ADHD Musculoskeletal: None Derm: None - Past Surgical History Past Surgical History: No General: Cholecystectomy - Present Medications Home Medications: Ambulatory Orders Medication Instructions Recorded Confirmed Levonorgestrel 20 Mcg/24H [Mirena] 1 each IY 12/28/18 - Allergies Allergies/Adverse Reactions: Allergies Allergy/AdvReac Type Severity Reaction Status Date / Time amoxicillin Allergy Rash Verified 12/28/18 21:18 minocycline [Minocycline] Allergy Rash Verified 12/28/18 21:18 acetaminophen AdvReac Unknown Verified 12/28/18 21:18 - Social History Does the pt smoke?: No Smoking Status: Never smoker Does the pt drink ETOH?: Yes Does the pt have substance abuse?: No - Immunizations Immunizations are current?: No Immunizations: TDAP >10years/unknown - POLST Patient has POLST: No PD ED PE NORMAL - Vitals Vital signs reviewed: Yes (Normal) - General General: Alert and oriented X 3, Well developed/nourished - HEENT HEENT: Atraumatic - Cardiac Cardiac: RRR - Respiratory Respiratory: No respiratory distress, Clear bilaterally - Abdomen Abdomen: Soft, Non tender - Female Female : Electronic Organ Mechanic present - Back Back: No CVA TTP - Derm Derm: No rash - Neuro Neuro: Alert and oriented X 3, Normal speech PD ED PE EXPANDED - Female Female : Normal external, Normal exam, Cultures sent, Electronic Organ Mechanic present, Other (No IUD string is visualized.). No: Vaginal Bleeding, Vaginal Discharge, Adnexal Mass, Adnexal Tenderness Results - Vitals Vitals: Vital Signs - 24 hr 12/28/18 21:15 Temperature 36.7 C Heart Rate 100 Respiratory 16 Rate Blood Pressure 128/81 H O2 Saturation 98 Oxygen O2 Source Room air - Labs Labs: Laboratory Tests 12/28/18 21:37 Urine Color YELLOW Urine Clarity HAZY Urine pH 6.5 Ur Specific [place] 1.015 Urine Protein NEGATIVE Urine Glucose (UA) NEGATIVE Urine Ketones NEGATIVE Urine Occult Blood NEGATIVE Urine Nitrite NEGATIVE Urine Bilirubin NEGATIVE Urine Urobilinogen 0.2 (NORMAL) Ur Leukocyte Esterase MODERATE H Urine RBC 0-5 Urine WBC 4-5 Ur Squamous Epith Cells MOD Squamous H Urine Bacteria None Seen Ur Microscopic Review INDICATED Urine Culture Comments NOT INDICATED Urine HCG, Qual NEGATIVE PD MEDICAL DECISION MAKING - ED course Complexity details: reviewed results, considered differential, d/w patient, d/w family ED course: The patient's presentation is most consistent with dislodged Mirena IUD. The string is not visualized on physical examination. Her urinalysis is negative for UTI and urine test is negative. GC and Chlamydia cultures are pending. I discussed with the patient and her the results of the examination, the importance of outpatient follow-up with her delivery stock clerk, as well as potentially worrisome signs or symptoms that should prompt reevaluation in the emergency department. Departure - Departure Disposition: 01 Home, Self Care Clinical Impression: IUD complication Qualifiers: Device complication type: mechanical Mechanical complication type: displacement Encounter type: initial encounter Qualified Code(s): T83.32XA - Displacement of intrauterine contraceptive device, initial encounter Condition: Stable Follow-Up: Alessandra Joseph CNM, [employer] TRI OPERATOR [Provider Admit Priv/Credential] - Comments: Your Mirena IUD string was not visualized on physical examination. Follow-up with your delivery stock clerk. Call to schedule an appointment. Return to the emergency department if you develop increasing abdominal or pelvic pain, or otherwise worsening symptoms. Discharge Date/Time: 12/28/18 22:14
[2018-12-29 21:31] LABS: TRICHOMONAS VAGINALIS DNA NEGATIVE (NEGATIVE)
== END 2018-12-28 22:14 | disposition home or self-care (01) ==
LOC: ED 21:08
DX: T83.32XA Displacement of intrauterine contraceptive device, initial encounter (principal)
CPT/HCPCS: 81001; 81003; 81025; 87086; 87491; 87591; 87661; 99283; 99284

== ENCOUNTER 2019-06-06 05:50 | Emergency (ER) | payer MEDICAID ==
--- NOTE | 2019-06-06 05:54 | ED Physician Documentation ---
History of Present Illness - Stated complaint Stated Complaint: VOMITING - History obtained from History obtained from: Patient (the patient is a very pleasant 23 y/o f who p/w a cc of vomiting after she ate at a fast food resaurant last night. she denies hematemesis, fevers, abd pain or any other complaints. she reports she is not .) Review of Systems Constitutional: reports: Reviewed and negative Eyes: reports: Reviewed and negative Ears: reports: Reviewed and negative Nose: reports: Reviewed and negative Throat: reports: Reviewed and negative Cardiac: reports: Reviewed and negative Respiratory: reports: Reviewed and negative GI: reports: Nausea, Vomiting : reports: Reviewed and negative Skin: reports: Reviewed and negative Musculoskeletal: reports: Reviewed and negative Neurologic: reports: Reviewed and negative Psychiatric: reports: Reviewed and negative Endocrine: reports: Reviewed and negative Immunocompromised: reports: Reviewed and negative PD PAST MEDICAL HISTORY - Past Medical History Cardiovascular: None Respiratory: None Endocrine/Autoimmune: None GI: Other : None HEENT: None Psych: ADD/ADHD Musculoskeletal: None Derm: None - Past Surgical History Past Surgical History: No General: Cholecystectomy - Present Medications Home Medications: Ambulatory Orders Medication Instructions Recorded Confirmed Levonorgestrel 20 Mcg/24H [Mirena] 1 each IY 12/28/18 Ondansetron Odt [Zofran] 4 mg TL Q6H PRN #10 tablet 06/06/19 - Allergies Allergies/Adverse Reactions: Allergies Allergy/AdvReac Type Severity Reaction Status Date / Time amoxicillin Allergy Rash Verified 06/06/19 05:59 minocycline [Minocycline] Allergy Rash Verified 06/06/19 05:59 acetaminophen AdvReac Unknown Verified 06/06/19 05:59 - Social History Does the pt smoke?: No Smoking Status: Never smoker Does the pt drink ETOH?: Yes Does the pt have substance abuse?: No - Immunizations Immunizations are current?: No Immunizations: TDAP >10years/unknown - POLST Patient has POLST: No PD ED PE NORMAL - Vitals Vital signs reviewed: Yes - General General: Alert and oriented X 3, No acute distress, Well developed/nourished, Other (vomiting into emesis bag) - HEENT HEENT: Atraumatic, PERRL, Pharynx benign - Neck Neck: Supple, no meningeal sign, No JVD - Cardiac Cardiac: RRR, Strong equal pulses - Respiratory Respiratory: No respiratory distress, Clear bilaterally - Abdomen Abdomen: Normal bowel sounds, Soft, Non tender, Non distended, No organomegaly - Back Back: No CVA TTP, No spinal TTP - Derm Derm: Normal color, Warm and dry, No rash - Extremities Extremities: No deformity, No tenderness to palpate, No edema - Neuro Neuro: Alert and oriented X 3, surtass analyst 2-12 intact, No motor deficit, No sensory deficit, Normal speech - Psych Psych: Normal mood, Normal affect Results - Vitals Vitals: Vital Signs - 24 hr 06/06/19 05:57 Temperature 36.5 C Heart Rate 124 H Respiratory 20 Rate Blood Pressure 105/70 O2 Saturation 95 Oxygen O2 Source Room air - Labs Labs: Laboratory Tests 06/06/19 06/06/19 06:25 06:25 WBC 10.2 RBC 4.74 Hgb 14.2 Hct 43.3 MCV 91.4 MCH 30.0 MCHC 32.8 RDW 11.9 L Plt Count 288 MPV 10.8 Neut # (Auto) 9.2 H Lymph # (Auto) 0.5 L Coal # (Auto) 0.4 Eos # (Auto) 0.0 Baso # (Auto) 0.0 Absolute Nucleated RBC 0.00 Nucleated RBC % 0.0 Sodium 138 Potassium 3.7 Chloride 99 L Carbon Dioxide 27 Anion Gap 12.0 BUN 20 Creatinine 0.7 Estimated GFR (MDRD) 102 Glucose 113 H Calcium 9.0 Total Bilirubin 0.8 AST 26 ALT 26 Alkaline Phosphatase 63 Total Protein 7.9 Albumin 4.2 Globulin 3.7 Albumin/Globulin Ratio 1.1 Lipase 27 PD MEDICAL DECISION MAKING - ED course Complexity details: re-evaluated patient (06:58 AM, no vomiting, no pain, tolerated po challenge, will dc at this time.), other (hx and pe are consistent with gastroenteritis, will send screening labs and provide IVF and IV zofran and phenergan) Departure - Departure Disposition: 01 Home, Self Care Clinical Impression: Gastroenteritis Condition: Good Instructions: ED Gastroenteritis Non Infec Follow-Up: YOUR,DOCTOR [Other] - As Needed Prescriptions: Ondansetron Odt [Zofran] 4 mg TL Q6H PRN #10 tablet PRN Reason: Nausea / Vomiting
[2019-06-06] MEDS ORDERED: PROMETHAZINE INJ 25 MG in SODIUM CHLORIDE 0.9% 50 ML IV STA (06:08)
[2019-06-06] MEDS ORDERED: SODIUM CHLORIDE 0.9% 1,000 ML IV ONE (06:09)
[2019-06-06] MEDS ORDERED: ONDANSETRON 4 MG/2 ML VIAL IVP STA (06:09)
[2019-06-06 06:36] LABS: BASOPHILS % (AUTO) 0.3 %; EOSINOPHILS % (AUTO) 0.2 %; HGB - HEMOGLOBIN 14.2 g/dL (12.0-16.0); LYMPHOCYTES # (AUTO) 0.5 10^3/uL (1.5-3.5); MEAN CORPUSCULAR HGB CONC 32.8 g/dL (32.0-36.0); MEAN CORPUSCULAR VOLUME 91.4 fL (81.0-99.0); MEAN PLATELET VOLUME 10.8 fL (7.9-10.8); MONOCYTES # (AUTO) 0.4 10^3/uL (0.0-1.0); MONOCYTES % (AUTO) 4.2 %; NEUTROPHILS # (AUTO) 9.2 10^3/uL (1.5-6.6); NEUTROPHILS % (AUTO) 89.9 %; PLT - PLATELET COUNT 288 10^3/uL (130-450); RED BLOOD COUNT 4.74 10^6/uL (4.20-5.40); RED CELL DISTRIBUTION WIDTH 11.9 % (12.0-15.0); WHITE BLOOD COUNT 10.2 x10^3/uL (4.8-10.8)
[2019-06-06 06:49] LABS: ALBUMIN 4.2 g/dL (3.2-5.5); ALBUMIN/GLOBULIN RATIO 1.1 (1.0-2.2); BILIRUBIN,TOTAL 0.8 mg/dL (0.2-1.0); CREATININE 0.7 mg/dL (0.4-1.0); TOTAL PROTEIN 7.9 g/dL (6.7-8.2)
[2019-06-06 07:00] LABS: HCG,QUALITATIVE BLOOD NEGATIVE
[2019-06-06 07:09] VITALS: BP 107/76
== END 2019-06-06 07:12 | disposition home or self-care (01) ==
LOC: ED 05:50
DX: K52.9 Noninfective gastroenteritis and colitis, unspecified (principal)
CPT/HCPCS: 36415; 80053; 83690; 84703; 85025; 96365; 96375; 99283; 99284; J7040

== ENCOUNTER 2019-07-10 21:42 | Emergency (ER) | payer MEDICAID ==
[2019-07-10 21:48] VITALS: BP 169/95
--- NOTE | 2019-07-10 21:49 | ED Physician Documentation ---
History of Present Illness - Stated complaint Stated Complaint: SORE THROAT - History obtained from History obtained from: Patient (the patient is a 23 y/o healthy female who p/w a cc of sore throat for 3 days, states her daughter recently tested positive for strep throat. denies any chaparro, neck pain, rash or myalgias.) Review of Systems Constitutional: reports: Reviewed and negative Eyes: reports: Reviewed and negative Ears: reports: Reviewed and negative Nose: reports: Reviewed and negative Throat: reports: Sore throat Cardiac: reports: Reviewed and negative Respiratory: reports: Reviewed and negative GI: reports: Reviewed and negative : reports: Reviewed and negative Skin: reports: Reviewed and negative Musculoskeletal: reports: Reviewed and negative Neurologic: reports: Reviewed and negative Psychiatric: reports: Reviewed and negative Endocrine: reports: Reviewed and negative Immunocompromised: reports: Reviewed and negative PD PAST MEDICAL HISTORY - Past Medical History Cardiovascular: None Respiratory: None Endocrine/Autoimmune: None GI: Other : None HEENT: None Psych: ADD/ADHD Musculoskeletal: None Derm: None - Past Surgical History Past Surgical History: No General: Cholecystectomy - Present Medications Home Medications: Ambulatory Orders Medication Instructions Recorded Confirmed Levonorgestrel 20 Mcg/24H [Mirena] 1 each IY 12/28/18 - Allergies Allergies/Adverse Reactions: Allergies Allergy/AdvReac Type Severity Reaction Status Date / Time amoxicillin Allergy Rash Verified 07/10/19 21:54 minocycline [Minocycline] Allergy Rash Verified 07/10/19 21:54 acetaminophen AdvReac Unknown Verified 07/10/19 21:54 - Social History Does the pt smoke?: No Smoking Status: Never smoker Does the pt drink ETOH?: Yes Does the pt have substance abuse?: No - Immunizations Immunizations are current?: No Immunizations: TDAP >10years/unknown - POLST Patient has POLST: No PD ED PE NORMAL - Vitals Vital signs reviewed: Yes - General General: Alert and oriented X 3, No acute distress, Well developed/nourished - HEENT HEENT: Atraumatic, PERRL, EOMI, Ears normal, Moist mucous membranes, Dentition benign, Other (Posterior oropharynx is erythematous, uvula is midline there is 1 exudateOn the left tonsillar pillar, tonsils are not touching normal voice tolerating her secretions no signs of ANUG or Ludwigs. ) - Neck Neck: Supple, no meningeal sign, No bony TTP, Other (The neck is soft and supple there is no meningeal signs there is no anterior posterior cervical lymphadenopathy no occipital lymphadenopathy trachea is midline there is no thyromegaly no JVD no carotid bruits.) - Cardiac Cardiac: RRR, No murmur - Respiratory Respiratory: Clear bilaterally - Abdomen Abdomen: Normal bowel sounds, Soft, Non tender, Non distended - Back Back: No spinal TTP - Derm Derm: Normal color, Warm and dry, No rash - Extremities Extremities: No deformity, No tenderness to palpate, Normal ROM s pain, No edema, No calf tenderness / cord - Neuro Neuro: Alert and oriented X 3, grapple operator 2-12 intact, No motor deficit, No sensory deficit, Normal speech - Psych Psych: Normal mood, Normal affect Results - Vitals Vitals: Vital Signs - 24 hr 07/10/19 21:45 Temperature 36.8 C Heart Rate 98 Respiratory 18 Rate Blood Pressure 169/95 H O2 Saturation 96 Oxygen O2 Source Room air PD MEDICAL DECISION MAKING - ED course Complexity details: considered differential (Pharyngitis, viral pharyngitis, strep pharyngitis no signs of prevertebral abscess or peritonsillar abscess or anug or Efe's or meningitis.) Departure - Departure Disposition: 01 Home, Self Care Clinical Impression: Pharyngitis Qualifiers: Pharyngitis/tonsillitis etiology: unspecified etiology Qualified Code(s): J02.9 - Acute pharyngitis, unspecified Condition: Stable Instructions: ED Pharyngitis Viral Follow-Up: your, doctor [Other] - As Needed
[2019-07-10 22:06] LABS: RAPID STREP SCREEN Negative (Negative)
== END 2019-07-10 22:11 | disposition home or self-care (01) ==
LOC: ED 21:42
DX: J02.9 Acute pharyngitis, unspecified (principal)
CPT/HCPCS: 87070; 87430; 99282; 99283